=== PATIENT | male | born 1930 | race Caucasian/White ===

== ENCOUNTER 2020-07-03 17:29 | Inpatient (IN) ==
[2020-07-03] MEDS ORDERED: 0.9 % Sodium Chloride 250 ML ONE (17:42)
[2020-07-03] MEDS ORDERED: *HR* Norepinephrine 4 MG/4 ML VIAL IVC ONE (17:43)
[2020-07-03] MEDS: Norepinephrine 4 MG/254 ML IV.SOLN IVC SCH (17:45)
[2020-07-03 18:22] LABS: Bacteria,Urine Few per hpf (None-Few); Bilirubin,Urine Negative (Negative); Blood,Urine Small (Negative); Clarity,Urine Turbid (Clear); Color,Urine Light-Yellow (Yellow); Glucose,Urine (UA) Normal (Normal); Granular Casts,Urine Few per lpf (None Seen); Hyaline Casts,Urine Few per lpf (None Seen); Ketones,Urine Negative (Negative); Leukocyte Esterase,Urine Large (Negative); Mucus,Urine Few per lpf (None-Few); Nitrite,Urine Negative (Negative); PH,Urine 6.5 pH Units (5.0-8.0); Protein,Urine Trace mg/dL (Neg-Trace); Specific Gravity,Urine 1.009 (1.010-1.025); Squamous Epithelial Cell,Urine Few per hpf (None-Few); Urobilinogen,Urine Normal (Normal); WBC,Urine TNTC per hpf (0-3)
[2020-07-03 18:59] LABS: INR 1.6; Prothrombin Time 18.6 Seconds (9.4-12.1)
[2020-07-03 19:00] LABS: Hematocrit 26.4 % (37.5-50.1); Hemoglobin 8.1 g/dL (12.9-16.9); Mean Corpuscular HGB Conc 30.7 g/dL (31.6-35.5); Mean Corpuscular Hemoglobin 27.7 pg (28.0-33.3); Mean Corpuscular Volume 90.4 fL (83.0-100.0); Platelet Count 133 K/mcL (140-400); Red Blood Count 2.92 M/mcL (4.19-5.50); Red Cell Distribution Width 16.1 % (11.5-14.5); White Blood Count 18.3 K/mcL (4.3-11.1)
[2020-07-03 19:01] LABS: Activated Partial Thrombo Time 31.4 Seconds (26.0-36.0)
[2020-07-03 19:23] LABS: Alanine Aminotransferase 8 Units/L (7-52); Albumin 2.5 g/dL (3.5-5.7); Albumin/Globulin Ratio 0.7 (1.1-2.2); Alkaline Phosphatase 51 Units/L (34-104); Aspartate Amino Transferase 15 Units/L (13-39); BUN/Creatinine Ratio 29 (6-26); Bilirubin,Direct 0.2 mg/dL (0.0-0.2); Bilirubin,Indirect 0.3 mg/dL (0.0-1.0); Bilirubin,Total 0.5 mg/dL (0.3-1.0); Blood Urea Nitrogen 25 mg/dL (8-23); Calcium 7.2 mg/dL (8.6-10.3); Carbon Dioxide 18 mEq/L (23-29); Chloride 112 mEq/L (98-107); Globulin 3.5 g/dL (2.4-3.5); Glucose 87 mg/dL (70-105); Magnesium 1.4 mg/dL (1.6-2.6); Osmolality,Calculated 286 (280-300); Phosphorous 2.5 mg/dL (2.7-4.5); Potassium 3.2 mEq/L (3.5-5.1); Sodium 136 mEq/L (136-145); Troponin I 0.12 ng/mL (< 0.04); eGFR For African Americans > 60 (> 60); eGFR For Non-African Americans > 60 (> 60)
[2020-07-03 19:25] LABS: Lymphocytes # 1.8 K/mcL (0.6-4.6); Monocytes # 1.1 K/mcL (0.0-1.3); Neutrophils # 15.4 K/mcL (1.6-8.9)
[2020-07-03 19:26] LABS: Anisocytosis 1+ (Not Present); Platelet Estimate Slight Decrease (Normal); Smudge Cells Present (Not Present)
[2020-07-03] MEDS ORDERED: Naloxone 0.4 MG/ML INJ IVP PRN (20:16)
[2020-07-03] MEDS ORDERED: Ondansetron 4 MG/2 ML VIAL IVP PRN (20:16)
[2020-07-03] MEDS ORDERED: Potassium Chloride 40 MEQ, Lidocaine 1% 2 ML in 0.9 % Sodium Chloride 500 ML IVPB ONE (20:21)
[2020-07-03] MEDS ORDERED: Vancomycin 1,750 MG/517.5 ML IV.SOLN IVPB ONE (20:40)
[2020-07-03] MEDS: Piperacillin/Tazobactam 3.375 GM in 0.9 % Sodium Chloride Mini Bag 100 ML IVPB SCH (21:18)
[2020-07-03] MEDS ORDERED: Ipratropium/Albuterol Neb 3 ML IH PRN (22:00)
[2020-07-03 23:39] LABS: Adenovirus Not Detected (Not Detect); Bordetella Pertussis Not Detected (Not Detect); Chlamydophila pneumoniae Not Detected (Not Detect); Coronavirus 229E Not Detected (Not Detect); Coronavirus HKU1 Not Detected (Not Detect); Coronavirus NL63 Not Detected (Not Detect); Coronavirus OC43 Not Detected (Not Detect); Human Metapneumovirus Not Detected (Not Detect); Human Rhinovirus/Enterovirus Not Detected (Not Detect); Influenza A Subtype 2009 H1 Not Detected (Not Detect); Influenza B Not Detected (Not Detect); Mycoplasma pneumoniae Not Detected (Not Detect); Parainfluenza Virus 1 Not Detected (Not Detect); Parainfluenza Virus 2 Not Detected (Not Detect); Parainfluenza Virus 3 Not Detected (Not Detect); Parainfluenza Virus 4 Not Detected (Not Detect); Respiratory Syncytial Virus Not Detected (Not Detect); SARS-CoV-2 Not Detected (Not Detect)
[2020-07-04] MEDS ORDERED: Phentolamine Mesylate 5 MG VIAL IJ ONE (00:21)
[2020-07-04] MEDS: Ipratropium/Albuterol Neb 3 ML IH SCH ×5 (00:36→22:34)
[2020-07-04] MEDS ORDERED: Furosemide 40 MG/4 ML VIAL IVP ONE (00:45)
[2020-07-04 03:58] LABS: Basophils % 0.1 %; Eosinophils % 0.2 %; Hematocrit 29.2 % (37.5-50.1); Hemoglobin 9.1 g/dL (12.9-16.9); Immature Granulocytes % 3.4 % (0-4); Lymphocytes # 0.4 K/mcL (0.6-4.6); Lymphocytes % 3.6 %; Mean Corpuscular HGB Conc 31.2 g/dL (31.6-35.5); Mean Corpuscular Hemoglobin 27.6 pg (28.0-33.3); Mean Corpuscular Volume 88.5 fL (83.0-100.0); Mean Platelet Volume 9.8 fL (9.4-12.4); Monocytes # 0.5 K/mcL (0.0-1.3); Neutrophils # 10.5 K/mcL (1.6-8.9); Platelet Count 118 K/mcL (140-400); Segmented Neutrophils % 88.7 %; White Blood Count 11.9 K/mcL (4.3-11.1)
[2020-07-04 04:18] LABS: BUN/Creatinine Ratio 26 (6-26); Blood Urea Nitrogen 20 mg/dL (8-23); Calcium 7.6 mg/dL (8.6-10.3); Carbon Dioxide 18 mEq/L (23-29); Chloride 115 mEq/L (98-107); Glucose 80 mg/dL (70-105); Magnesium 1.9 mg/dL (1.6-2.6); Osmolality,Calculated 294 (280-300); Phosphorous 2.6 mg/dL (2.7-4.5); Potassium 3.6 mEq/L (3.5-5.1); Sodium 141 mEq/L (136-145); eGFR For African Americans > 60 (> 60); eGFR For Non-African Americans > 60 (> 60)
[2020-07-04] MEDS: Piperacillin/Tazobactam 3.375 GM in 0.9 % Sodium Chloride Mini Bag 100 ML IVPB SCH ×2 (07:19→16:56)
[2020-07-04] MEDS ORDERED: Aspirin 81 MG TAB.CHEW PO SCH (09:00)
[2020-07-04] MEDS ORDERED: *HR* Heparin 5,000 UNIT/ML VIAL SQ SCH (14:00)
[2020-07-04] MEDS ORDERED: *HR* Dextrose 50 % in Water (Vial) 50 ML VIAL IVP ONE (14:22)
[2020-07-04] MEDS: Norepinephrine 4 MG/254 ML IV.SOLN IVC SCH (15:42)
[2020-07-04] MEDS ORDERED: Naloxone 0.4 MG/ML INJ IVP PRN (17:19)
[2020-07-04] MEDS ORDERED: GuaiFENesin Liq 200 MG/10 ML UDC PO PRN (17:19)
[2020-07-04] MEDS ORDERED: Ondansetron 4 MG/2 ML VIAL IVP PRN (17:19)
[2020-07-04] MEDS ORDERED: MOM Conc 10 ML UD.LIQ PO PRN (17:19)
[2020-07-04] MEDS ORDERED: Nitroglycerin 0.4 MG TAB.SUBL SL PRN (17:19)
[2020-07-04] MEDS ORDERED: Acetaminophen 325 MG TABLET PO PRN (17:19)
[2020-07-04] MEDS ORDERED: polyethylene glycoL 3350 17 GM POWD.PACK PO PRN (17:19)
[2020-07-04] MEDS ORDERED: Ipratropium/Albuterol Neb 3 ML IH PRN (18:00)
[2020-07-04] MEDS: Cholecalciferol (D-3) 1,000 UNIT (25MCG) TABLET PO SCH (21:16)
[2020-07-04] MEDS: Ascorbic Acid 500 MG TABLET PO SCH (21:16)
[2020-07-04] MEDS: *HR* Heparin 5,000 UNIT/ML VIAL SQ SCH (21:17)
[2020-07-05] MEDS: Piperacillin/Tazobactam 3.375 GM in 0.9 % Sodium Chloride Mini Bag 100 ML IVPB SCH ×4 (02:30→23:58)
[2020-07-05 04:19] LABS: Hematocrit 26.9 % (37.5-50.1); Hemoglobin 8.6 g/dL (12.9-16.9); Mean Corpuscular Hemoglobin 28.5 pg (28.0-33.3); Mean Corpuscular Volume 89.1 fL (83.0-100.0); Mean Platelet Volume 9.7 fL (9.4-12.4); Platelet Count 133 K/mcL (140-400); Red Blood Count 3.02 M/mcL (4.19-5.50); Red Cell Distribution Width 15.9 % (11.5-14.5); White Blood Count 9.2 K/mcL (4.3-11.1)
[2020-07-05] MEDS: Ipratropium/Albuterol Neb 3 ML IH SCH ×4 (04:22→21:59)
[2020-07-05 04:38] LABS: BUN/Creatinine Ratio 21 (6-26); Blood Urea Nitrogen 13 mg/dL (8-23); Calcium 7.8 mg/dL (8.6-10.3); Carbon Dioxide 18 mEq/L (23-29); Chloride 110 mEq/L (98-107); Glucose 70 mg/dL (70-105); Magnesium 1.5 mg/dL (1.6-2.6); Osmolality,Calculated 289 (280-300); Potassium 2.5 mEq/L (3.5-5.1); Sodium 140 mEq/L (136-145); eGFR For African Americans > 60 (> 60); eGFR For Non-African Americans > 60 (> 60)
[2020-07-05] MEDS: *HR* Heparin 5,000 UNIT/ML VIAL SQ SCH ×3 (05:06→21:36)
[2020-07-05] MEDS: Aspirin 81 MG TAB.CHEW PO SCH (08:59)
[2020-07-05] MEDS: Isosorbide MONOnitrate (24 HR) 30 MG TAB.ER.24H PO SCH (08:59)
[2020-07-05] MEDS: Ascorbic Acid 500 MG TABLET PO SCH ×2 (08:59→21:35)
[2020-07-05 12:48] LABS: BUN/Creatinine Ratio 19 (6-26); Blood Urea Nitrogen 11 mg/dL (8-23); Calcium 7.9 mg/dL (8.6-10.3); Carbon Dioxide 18 mEq/L (23-29); Chloride 110 mEq/L (98-107); Glucose 82 mg/dL (70-105); Osmolality,Calculated 288 (280-300); Potassium 2.7 mEq/L (3.5-5.1); Sodium 140 mEq/L (136-145); eGFR For African Americans > 60 (> 60); eGFR For Non-African Americans > 60 (> 60)
[2020-07-05] MEDS: Cholecalciferol (D-3) 1,000 UNIT (25MCG) TABLET PO SCH (21:35)
[2020-07-05 23:09] LABS: BUN/Creatinine Ratio 19 (6-26); Blood Urea Nitrogen 11 mg/dL (8-23); Calcium 8.2 mg/dL (8.6-10.3); Carbon Dioxide 12 mEq/L (23-29); Chloride 114 mEq/L (98-107); Glucose 76 mg/dL (70-105); Osmolality,Calculated 290 (280-300); Potassium 3.9 mEq/L (3.5-5.1); Sodium 141 mEq/L (136-145); eGFR For African Americans > 60 (> 60); eGFR For Non-African Americans > 60 (> 60)
[2020-07-06] MEDS: Ipratropium/Albuterol Neb 3 ML IH SCH (04:00)
[2020-07-06] MEDS: *HR* Heparin 5,000 UNIT/ML VIAL SQ SCH ×2 (05:52→14:04)
[2020-07-06 06:31] LABS: Hematocrit 27.9 % (37.5-50.1); Hemoglobin 8.6 g/dL (12.9-16.9); Mean Corpuscular HGB Conc 30.8 g/dL (31.6-35.5); Mean Corpuscular Hemoglobin 27.2 pg (28.0-33.3); Mean Corpuscular Volume 88.3 fL (83.0-100.0); Mean Platelet Volume 9.8 fL (9.4-12.4); Platelet Count 142 K/mcL (140-400); Red Blood Count 3.16 M/mcL (4.19-5.50); Red Cell Distribution Width 15.9 % (11.5-14.5); White Blood Count 6.6 K/mcL (4.3-11.1)
[2020-07-06 06:39] LABS: BUN/Creatinine Ratio 16 (6-26); Blood Urea Nitrogen 9 mg/dL (8-23); Calcium 8.3 mg/dL (8.6-10.3); Carbon Dioxide 15 mEq/L (23-29); Chloride 111 mEq/L (98-107); Glucose 72 mg/dL (70-105); Magnesium 1.5 mg/dL (1.6-2.6); Osmolality,Calculated 285 (280-300); Potassium 2.6 mEq/L (3.5-5.1); Sodium 139 mEq/L (136-145); eGFR For African Americans > 60 (> 60); eGFR For Non-African Americans > 60 (> 60)
[2020-07-06] MEDS: Aspirin 81 MG TAB.CHEW PO SCH (08:07)
[2020-07-06] MEDS: Isosorbide MONOnitrate (24 HR) 30 MG TAB.ER.24H PO SCH (08:07)
[2020-07-06] MEDS: Ascorbic Acid 500 MG TABLET PO SCH (08:07)
[2020-07-06] MEDS: Piperacillin/Tazobactam 3.375 GM in 0.9 % Sodium Chloride Mini Bag 100 ML IVPB SCH ×2 (08:08→16:29)
[2020-07-06] MEDS ORDERED: Potassium Chloride Elixir 20 MEQ/15 ML UDC PO ONE (08:40)
[2020-07-06 12:52] LABS: BUN/Creatinine Ratio 13 (6-26); Blood Urea Nitrogen 7 mg/dL (8-23); Calcium 8.2 mg/dL (8.6-10.3); Carbon Dioxide 15 mEq/L (23-29); Chloride 111 mEq/L (98-107); Glucose 90 mg/dL (70-105); Osmolality,Calculated 286 (280-300); Potassium 2.7 mEq/L (3.5-5.1); Sodium 139 mEq/L (136-145); eGFR For African Americans > 60 (> 60); eGFR For Non-African Americans > 60 (> 60)
[2020-07-06] MEDS ORDERED: Potassium Chloride 40 MEQ, Lidocaine 1% 2 ML in 0.9 % Sodium Chloride 500 ML IVPB ONE (14:07)
[2020-07-06 16:49] LABS: Adenovirus Not Detected (Not Detect); Bordetella Pertussis Not Detected (Not Detect); Chlamydophila pneumoniae Not Detected (Not Detect); Coronavirus 229E Not Detected (Not Detect); Coronavirus HKU1 Not Detected (Not Detect); Coronavirus NL63 Not Detected (Not Detect); Coronavirus OC43 Not Detected (Not Detect); Human Metapneumovirus Not Detected (Not Detect); Human Rhinovirus/Enterovirus Not Detected (Not Detect); Influenza A Subtype 2009 H1 Not Detected (Not Detect); Influenza B Not Detected (Not Detect); Mycoplasma pneumoniae Not Detected (Not Detect); Parainfluenza Virus 1 Not Detected (Not Detect); Parainfluenza Virus 2 Not Detected (Not Detect); Parainfluenza Virus 3 Not Detected (Not Detect); Parainfluenza Virus 4 Not Detected (Not Detect); Respiratory Syncytial Virus Not Detected (Not Detect); SARS-CoV-2 Not Detected (Not Detect)
[2020-07-06 18:39] VITALS: BP 118/56
== END 2020-07-06 19:29 | DRG 871 ==
LOC: EMEROOARM 17:29 → SUATTDRO 20:15 → ICNU 20:15 → 3ANU 07-05 21:18
PROVIDERS: ADMIT Internal Medicine; ATTEND Internal Medicine